=== PATIENT | male | born 1980 | race Caucasian/White ===

== ENCOUNTER 2017-04-30 08:42 | Emergency (ER) | payer BC ==
[~2017-04-30] VITALS: Ht 180.3 cm; Wt 88.5 kg
[2017-04-30] MEDS ORDERED: XANAX 0.25 MG0.25 MG PO (09:00)
[2017-04-30] MEDS ORDERED: REMERON15 MG PO (09:00)
[2017-04-30] MEDS ORDERED: MOBIC15 MG PO (09:40)
[2017-04-30 09:53] VITALS: BP 112/62
== END 2017-04-30 09:55 | disposition home or self-care (01) ==
LOC: ER 08:42
DX: S20.211A Contusion of right front wall of thorax, initial encounter (principal); F17.210 Nicotine dependence, cigarettes, uncomplicated; W18.39XA Other fall on same level, initial encounter; Y93.02 Activity, running; Y92.89 Other specified places as the place of occurrence of the external cause; Y99.8 Other external cause status